=== PATIENT | female | born 1980 | race American Indian/Alaskan Native ===

== ENCOUNTER 2016-09-29 10:08 | Outpatient (CLI) | payer BC, OTHER ==
--- NOTE | 2016-09-29 11:48 | Magnetic Resonance Report ---
MR CERVICAL SPINE WITHOUT CONTRAST History: Neck pain, cervical radiculopathy at C5. Technique: Axial T2. Sagittal T1, T2 and STIR. Comparison: None at this facility. Findings: There is straightening of normal lordosis. No evidence for bone lesion, fracture or subluxation. There is mild diffuse disc desiccation throughout the cervical region. The C4-5 and C5-6 disc spaces are most affected. The facet joints are within normal limits. C2-3: No abnormality. C3-4: No abnormality. C4-5: Mild posterior and bilateral uncovertebral spurring is noted. No central canal stenosis or neural foraminal narrowing. C5-6: Moderate posterior and bilateral uncovertebral spurring is present. There is mild effacement of the anterior thecal sac with mild central canal stenosis measuring 8.1 cm in AP dimension. Right neural foraminal narrowing is estimated at 50%. C6-7: There is a large left paracentral to left lateral disc herniation which projects into the left neural foramen resulting in severe left neural foraminal stenosis estimated at 90% or greater. The disc also exerts mild mass effect on the left side of the spinal cord/thecal sac. Borderline to mild central canal narrowing is also suspected. The disc herniation measures 1.1 cm transverse, 0.5 cm AP, and 1.0 cm craniocaudal. C7-T1: No abnormality. Impression: Mild multilevel degenerative disc disease. Large left paracentral to left lateral disc herniation with significant mass effect. This certainly could account for the C5 radiculopathy mentioned in the patient's clinical history. Please see above. No evidence for fracture, bone lesion or malalignment.
== END 2016-09-29 10:09 | disposition home or self-care (01) ==
LOC: SPVIMAG 10:08 → MRI 10:09
PROVIDERS: ATTEND Nurse Practitioner
DX: M48.02 Spinal stenosis, cervical region (principal); M50.123 Cervical disc disorder at C6-C7 level with radiculopathy; B35.4 Tinea corporis
CPT/HCPCS: 72141